=== PATIENT | female | born 1985 | race Caucasian/White ===

== ENCOUNTER 2019-05-03 11:53 | Emergency (ER) | payer OTHER ==
[2019-05-03 12:10] VITALS: BMI 21.1
--- NOTE | 2019-05-03 12:25 | PDOC ---
History of Present Illness - General Chief Complaint: Blood Transfusion Stated Complaint: CHEST PAIN Time Seen by Provider: 05/03/19 12:04 - History of Present Illness Initial Comments: Yury Waldrop is a 33yo woman with no known medical history who presents reporting that she needs a blood transfusion. She states that she has been feeling generally unwell, fatigued, and short of breath when climbing stairs for several weeks. She went to the ED at another hospital last week, also because she felt she needed a transfusion. She states that they "did not do anything" there. She does not remember whether she had any blood tests. She then went to see her PMD (unknown what day). Ms Waldrop states that her doctor told her she had anemia, but she does not know the underlying cause. She reports that her periods last 7-8 days normally but says the bleeding is not heavy. She has never seen a stoneworking belt sander. Per paperwork provided by the patient, she was referred to gynecology with an appointment scheduled on 04/30, but the pt was unaware of this. She also has a referral for possible blood transfusion, but she does not have any labs. She denies any history of other abnormal bleeding, previous need for transfusion, family history of bleeding disorders, or other known risk factors. Past History - Past Medical History Allergies/Adverse Reactions: Allergies Allergy/AdvReac Type Severity Reaction Status Date / Time No Known Allergies Allergy Verified 05/03/19 12:20 Home Medications: Ambulatory Orders NK [No Known Home Medication] 05/03/19 Anemia: Yes COPD: No - Immunization History Immunization Up to Date: Yes - Psycho Social/Smoking Cessation Hx Smoking History: Never smoked Hx Alcohol Use: No Drug/Substance Use Hx: No Review of Systems - Review of Systems Comments:: General: No fevers, no chills, no weight or appetite change, + malaise/fatigue HEENT: No changes in vision, no changes in hearing, no congestion, no sore throat CV: No chest pain, no palpitations, no LE edema Pulm: + SOB, no cough, no wheezing GI: No nausea or vomiting, no change in bowel habits, no melena : No frequency, no urgency, no dysuria Musc: No back pain, no joint swelling, no recent injury Skin: No rash, no lesions, no erythema Endo: No excessive thirst, no heat/cold intolerance Heme: No unusual bruising or bleeding, no swollen glands Neuro: No syncope, no numbness/tingling, no focal weakness Vasc: No claudication Psych: No recent change in mood, no SI or HI *Physical Exam - Vital Signs Last Vital Signs Temp Pulse Resp BP Pulse Ox 98.1 F 57 L 18 110/74 100 05/03/19 12:09 05/03/19 12:09 05/03/19 12:05/03/19 12:05/03/19 12:09 - Physical Exam General: Comfortable, no acute distress HEENT: PERRL, EOMI, MMM, voice normal, normal neck ROM Cards: RRR, no murmur appreciated Pulm: Comfortable on room air, clear to auscultation bilaterally Abd: Soft, nontender, nondistended Ext: Atraumatic. No LE edema. ROM intact. WWP Skin: Normal color, no rashes or lesions Neuro: A&Ox3, CN grossly intact, normal speech, motor/sensory grossly intact and symmetric Psych: Mood appropriate to situation ED Treatment Course - LABORATORY CBC & Chemistry Diagram: 05/03/19 12:22 05/03/19 12:22 Medical Decision Making - Medical Decision Making 05/03/19 12:25 Yury Waldrop is a 33yo woman with no known medical history who presents reporting that she needs a blood transfusion. She reports fatigue, CAMILO, and malaise for several weeks and was seen in an OSH ED as well as by her PMD. It is unclear whether she had any testing indicating that she requires transfusion. She endorses lengthy menstruation, 7-8 days per month, but missed a recent appointment this week to establish care with gynecology. - Normal HR and BP, pt well appearing. Unclear whether pt is currently anemic or just concerned about possible anemia. Last labs in her records are from 2010 with HGB 11. - CBC, CMP, T&S - CXR for report of SOB 05/03/19 13:37 - Labs reviewed. Hgb 8.9. No need for transfusion at this time - Pt now reporting that she has had chest pain recently. Trop and EKG added - Will most likely be able to discharge home with OB follow up for abnormal menstruation 05/03/19 15:42 - Trop negative - EKG w/ sinus bradycardia, no ST abnormalities - CXR without focal pathology - Discussed results at length with pt. Informed that she does have anemia, but there is no need for a transfusion. Strongly recommended prompt follow up with both gynecology and her PMD. She states understanding. Discussed with Dr Angella Johnson PGY2 Discharge - Discharge Information Problems reviewed: Yes Clinical Impression/Diagnosis: Anemia Qualifiers: Anemia type: unspecified type Qualified Code(s): D64.9 - Anemia, unspecified Condition: Stable Disposition: HOME - Admission No - Follow up/Referral Referrals: [facility] [Provider Group] - Patient Discharge Instructions Patient Printed Discharge Instructions: DI for Iron Deficiency Anemia-Adult Additional Instructions: Discharge Instructions: You were seen in the emergency department due to concerns about anemia. Your blood tests show that you do have anemia, but there is no need for a transfusion. It is unclear what is causing your anemia at this point as many tests are not available in the emergency department. It may be caused by heavy menstrual bleeding. You need to follow up with a stoneworking belt sander (women's doctor) as soon as possible. You have been given contact information for the [facility]. Call to schedule an appointment within the next week. You should also follow up with your regular doctor early next week. Seek immediate care for worsening symptoms, lightheadedness, fainting, difficulty breathing, worsening chest pain, or any other medical emergency. Instrucciones de descarga: Usted fue visto en el departamento de emergencias debido a preocupaciones sobre la anemia. Betsy anlisis de joie muestran que tiene anemia, jonathan no hay necesidad de sarah transfusin. No est ellis qu est causando patton anemia en emili momento, ya que muchas pruebas no estn disponibles en el departamento de emergencias. Puede ser causado por sangrado menstrual abundante. Debe realizar un seguimiento con un gineclogo (mdico de la robel) lo antes posible. Recibi informacin de contacto de la clnica [facility]. Llame para programar sarah dinorah dentro de la prxima semana. Fidenciobin debe hacer un seguimiento con patton mdico habitual a principios de la prxima semana. Busque atencin inmediata para el empeoramiento de los sntomas, mareos, desmayos, dificultad para respirar, empeoramiento del dolor en el pecho o cualquier otra emergencia mdica. Print Language: BELARUSIAN - Post Discharge Activity
[2019-05-03 12:41] LABS: BASO % 1.8 % (0-2.0); EOS % 1.2 % (0-4.5); HEMATOCRIT 29.2 % (32.4-45.2); HEMOGLOBIN 8.9 GM/dL (10.7-15.3); LYMPH % 36.9 % (8-40); MCHC 30.4 g/dl (32.0-36.0); MEAN CELL VOLUME 63.8 fl (80-96); MEAN PLT VOLUME 8.7 fl (7.5-11.1); MONO % 8.2 % (3.8-10.2); NEUT % 51.9 % (42.8-82.8); PLATELET COUNT 323 K/MM3 (134-434); RBC 4.58 M/mm3 (3.60-5.2); RDW 18.4 % (11.6-15.6); WHITE BLOOD COUNT 4.6 K/mm3 (4.0-10.0)
[2019-05-03 12:43] LABS: MCH 19.4 pg (25.7-33.7)
[2019-05-03 13:15] LABS: ALBUMIN 3.6 g/dl (3.4-5.0); ALK PHOS 63 U/L (45-117); ANION GAP 6 MMOL/L (8-16); BILIRUBIN,TOTAL 0.4 mg/dL (0.2-1); CHLORIDE 109 mmol/L (98-107); CO2 25 mmol/L (21-32); CREATININE 0.5 mg/dL (0.55-1.3); GLUCOSE,RANDOM 84 mg/dL (74-106); POTASSIUM 3.8 mmol/L (3.5-5.1); SGOT/AST 18 U/L (15-37); SGPT/ALT 22 U/L (13-61); SODIUM 140 mmol/L (136-145); TOT PROT 7.3 g/dl (6.4-8.2)
[2019-05-03] MEDS ORDERED: ACETAMINOPHEN 1000 MG/100 ML VIAL (NON FORMULARY) IVPB ONE (13:24)
[2019-05-03 14:01] LABS: ANISOCYTOSIS 1+; MACROCYTOSIS 0; OVALOCYTE 1+; PLATELET ESTIMATE NORMAL
--- NOTE | 2019-05-03 14:17 | PDOC ---
Documentation entered by Stacy Mckeon SCRIBE, acting as scribe for Mathew Perales MD. Mathew Perales MD: This documentation has been prepared by the Linda lyn Adrianna, SCRIBE, under my direction and personally reviewed by me in its entirety. I confirm that the documentation accurately reflects all work, treatment, procedures, and medical decision making performed by me. Attending Attestation - Resident Resident Name: ElizabethTory - ED Attending Attestation I have performed the following: I have examined & evaluated the patient, The case was reviewed & discussed with the resident, I agree w/resident's findings & plan, Exceptions are as noted - HPI HPI: The patient is a 33 year old female, with a significant PMH of anemia, who presents to the ED requesting a blood transfusion. Patient notes she has been feeling lethargic and fatigued for the past few weeks. Pt also endorses intermittent chest pain. Denies SOB. She went to an outside ER for the same complaints yesterday and was told she had anemia but was not transfused at that time. She has never seen a purchasing specialist and had a PLANER TAILER appointment scheduled 3 days ago, but did not make it as she did not know." Allergies: NKA, NKDA Surgical History: None reported Social History: Denies EtOH, tobacco, or illicit drug use PCP: Unsure - Physicial Exam PE: "GENERAL: Awake, alert, and fully oriented, in no acute distress. HEAD: No signs of trauma EYES: PERRLA, EOMI, sclera anicteric, conjunctiva clear ENT: Auricles normal inspection, hearing grossly normal, nares patent, oropharynx clear without exudates. Moist mucosa NECK: Nontender, no stepoffs, Normal ROM, supple, no lymphadenopathy, JVD, or masses LUNGS: Breath sounds equal, clear to auscultation bilaterally. No wheezes, and no crackles HEART: Regular rate and rhythm, normal S1 and S2, no murmurs, rubs or gallops ABDOMEN: Soft, nontender, normoactive bowel sounds. No guarding, no rebound. No masses EXTREMITIES: Normal range of motion, no edema. No clubbing or cyanosis. No cords, erythema, or tenderness NEUROLOGICAL: Cranial nerves II through XII intact. 5/5 strength and sensation in all extremities, Normal speech, normal gait, normal cerebellar function SKIN: Warm, Dry, normal turgor, no rashes or lesions noted. - Medical Decision Making 05/03/19 14:34 33 F with lethargy, weakness, and chest pain. EKG nonischemic. Possible symptomatic anemia. Will check blood count. R/o ACS with troponin. - Labs, trop - Tylenol 05/03/19 15:55 Labs notable for anemia. However, pt HD stable, no active bleeding, no indication for transfusion. CXR clear Pt is well appearing, with normal vitals. Clinically stable for DC at this time. I discussed the physical exam findings, ancillary test results and final diagnoses with the patient. I answered all of the patient's questions. The patient was satisfied with the care received and felt comfortable with the discharge plan and treatment plan. The patient agrees to follow up with the primary care physician within 24-72 hours.
[2019-05-03 16:25] VITALS: BP 110/68; PULSE 89; TEMP 98.5
[2019-05-03 19:31] LABS: EPI CELLS 1.2 /HPF (0-5/HPF); HYALINE CASTS 1 /lpf (0-8); PH,URINE 6.5 (5.0-8.0); URINE APPEARANCE CLEAR; URINE BACTERIA 62.6 /hpf (NEGATIVE); URINE BILIRUBIN NEGATIVE (NEGATIVE); URINE COLOR YELLOW; URINE GLUCOSE (UA) NEGATIVE (NEGATIVE); URINE KETONE NEGATIVE (NEGATIVE); URINE LEUK ESTERASE NEGATIVE (NEGATIVE); URINE NITRITE NEGATIVE (NEGATIVE); URINE PROTEIN NEGATIVE (NEGATIVE); URINE RBC 222 /hpf (0-4); URINE UROBILINOGEN 0.2 mg/dL (0.2-1.0); URINE WBC 1 /hpf (0-5)
--- NOTE | 2019-05-04 10:53 | EKG ---
Test Reason : Blood Pressure : / mmHG Vent. Rate : 060 BPM Atrial Rate : 060 BPM P-R Int : 150 ms QRS Dur : 088 ms QT Int : 440 ms P-R-T Axes : 045 048 050 degrees QTc Int : 440 ms POOR DATA QUALITY, INTERPRETATION MAY BE ADVERSELY AFFECTED NORMAL SINUS RHYTHM NORMAL ECG NO PREVIOUS ECGS AVAILABLE Confirmed by LYN HAWTHORNE MD ([id number]) on 05/04/2019 10:53:15 AM Referred By: Confirmed By:LYN HAWTHORNE MD
== END 2019-05-03 16:11 | disposition home or self-care (01) ==
LOC: JER 11:53
PROC: 3E033NZ Introduction of Analgesics, Hypnotics, Sedatives into Peripheral Vein, Percutaneous Approach (ICD-10-PCS; principal; 2019-05-03)
DX: D64.9 Anemia, unspecified (principal)
CPT/HCPCS: 36415; 71046-TC-FY; 80053; 81003; 84484; 84703; 85025; 86850; 86900; 86901; 87086; 93005; 93010; 96374; 99283-25; J0131

== ENCOUNTER 2021-02-25 12:05 | Inpatient (IN) | payer OTHER ==
[2021-02-25] MEDS ORDERED: BUTORPHANOL TARTRATE 2 MG/ML VIAL IVPB ONE (12:50)
[2021-02-25] MEDS ORDERED: PROMETHAZINE HCL 25 MG/1 ML VIAL IVPUSH ONE (12:50)
[2021-02-25] MEDS ORDERED: DEXTROSE 5%-LACTATED RINGERS 1,000 ML IV SCH (13:00)
[2021-02-25] MEDS ORDERED: OXYTOCIN 30 UNITS in 0.9% NS 30 UNIT/500 ML INFUS.BAG IVPB SCH (13:00)
[2021-02-25 13:17] VITALS: BMI 28.3
[2021-02-25 14:24] LABS: BASO % 0.4 % (0-2.0); EOS % 1.7 % (0-4.5); HEMATOCRIT 38.9 % (32.4-45.2); HEMOGLOBIN 13.2 GM/dL (10.7-15.3); LYMPH % 17.2 % (8-40); MCH 29.8 pg (25.7-33.7); MCHC 33.8 g/dl (32.0-36.0); MEAN CELL VOLUME 87.9 fl (80-96); MEAN PLT VOLUME 9.7 fl (7.5-11.1); MONO % 5.8 % (3.8-10.2); NEUT % 74.9 % (42.8-82.8); PLATELET COUNT 226 10^3/uL (134-434); RBC 4.42 M/mm3 (3.60-5.2); RDW 18.1 % (11.6-15.6); WHITE BLOOD COUNT 7.6 K/mm3 (4.0-10.0)
[2021-02-25 14:32] LABS: INR 0.92 (0.83-1.09); PROTHROMBIN TIME (PATIENT) 10.7 SEC (9.7-13.0)
[2021-02-25 14:35] LABS: ACTIVATED PTT 25.4 SECONDS (25.2-36.5)
[2021-02-25 14:45] LABS: BLOOD UREA NITROGEN 8.4 mg/dL (7-18); CALCIUM 9.3 mg/dL (8.5-10.1)
[2021-02-25 14:49] LABS: CREATININE 0.4 mg/dL (0.55-1.3)
[2021-02-25] MEDS ORDERED: WITCH HAZEL 50% (TUCKS) 40 PAD/JAR PAD TP PRN (16:42)
[2021-02-25] MEDS ORDERED: METHYLERGONOVINE MALEATE 0.2 MG/1 ML AMP IM PRN (16:42)
[2021-02-25] MEDS ORDERED: BISACODYL 10 MG SUPP.RECT RC PRN (16:42)
[2021-02-25] MEDS ORDERED: ACETAMINOPHEN 325 MG TABLET (FP) PO PRN (16:42)
[2021-02-25] MEDS ORDERED: BENZOCAINE 28 GM HEMORRHOIDAL OINTMENT TP PRN (16:42)
[2021-02-25] MEDS ORDERED: BENZOCAINE 20% 57 GM BOTTLE TP PRN (16:42)
[2021-02-25] MEDS ORDERED: OXYTOCIN 20 UNITS in 0.9% NS 20 UNIT/1,000 ML INFUS.BAG IV SCH (16:45)
[2021-02-25] MEDS: IBUPROFEN 600 MG TABLET (FP) PO PRN (18:28)
[2021-02-25] MEDS: FERROUS SO4 325 MG TABLET (FP) PO SCH (22:04)
[2021-02-26] MEDS: IBUPROFEN 600 MG TABLET (FP) PO PRN ×3 (06:33→21:37)
[2021-02-26 07:42] LABS: BASO % 0.6 % (0-2.0); EOS % 1.1 % (0-4.5); HEMATOCRIT 30.4 % (32.4-45.2); HEMOGLOBIN 10.5 GM/dL (10.7-15.3); LYMPH % 17.6 % (8-40); MCH 30.5 pg (25.7-33.7); MCHC 34.5 g/dl (32.0-36.0); MEAN CELL VOLUME 88.4 fl (80-96); MEAN PLT VOLUME 9.2 fl (7.5-11.1); MONO % 7.3 % (3.8-10.2); NEUT % 73.4 % (42.8-82.8); PLATELET COUNT 170 10^3/uL (134-434); RBC 3.44 M/mm3 (3.60-5.2); RDW 18.4 % (11.6-15.6); WHITE BLOOD COUNT 9.7 K/mm3 (4.0-10.0)
[2021-02-26] MEDS ORDERED: FLU VACC QS2021-22(6MOS UP)/PF 60 MCG/0.5 ML SYRINGE IM ONE (10:00)
[2021-02-26] MEDS: PRENATAL VITAMINS W/ FOLIC ACID TABLET (FP) PO SCH (11:11)
[2021-02-26] MEDS: FERROUS SO4 325 MG TABLET (FP) PO SCH ×2 (11:11→18:22)
[2021-02-26] MEDS ORDERED: SENNOSIDES/DOCUSATE COMBO (SENNA PLUS) TABLET (UD) PO PRN (22:00)
[2021-02-27] MEDS: FERROUS SO4 325 MG TABLET (FP) PO SCH (08:32)
[2021-02-27] MEDS: IBUPROFEN 600 MG TABLET (FP) PO PRN (08:34)
[2021-02-27 08:49] VITALS: BP 101/61; PULSE 63; TEMP 98
[2021-02-27] MEDS: PRENATAL VITAMINS W/ FOLIC ACID TABLET (FP) PO SCH (09:25)
== END 2021-02-27 13:30 | disposition home or self-care (01) | DRG 560 ==
LOC: JDEL 12:05 → JLDR 12:30 → J3W 20:45
PROVIDERS: ADMIT Obstetrics & Gynecology; ATTEND Obstetrics & Gynecology
PROC: 10E0XZZ Delivery of Products of Conception, External Approach (ICD-10-PCS; principal; 2021-02-25)
PROC: 0W8NXZZ Division of Female Perineum, External Approach (ICD-10-PCS; 2021-02-25)
PROC: 0HQ9XZZ Repair Perineum Skin, External Approach (ICD-10-PCS; 2021-02-25)
PROC: 10907ZC Drainage of Amniotic Fluid, Therapeutic from Products of Conception, Via Natural or Artificial Opening (ICD-10-PCS; 2021-02-25)
DX: O48.0 Post-term pregnancy (principal); Z3A.40 40 weeks gestation of pregnancy; O70.0 First degree perineal laceration during delivery; O69.81X0 Labor and delivery complicated by cord around neck, without compression, not applicable or unspecified; Z37.0 Single live birth
CPT/HCPCS: 36415; 59409; 80048; 85025; 85610; 85730; 86780; 86850; 86900; 86901; 90686; C9803; G0008; U0003; U0005